=== PATIENT | male | born 1985 | race Caucasian/White ===

== ENCOUNTER 2023-10-02 20:35 | Emergency (ER) | payer OTHER, SELFPAY ==
[2023-10-02 20:39] VITALS: BP 142/90
[2023-10-02 21:24] LABS: % Basophils 0.7 % (0-2); % Eosinophils 3.1 % (0-6); % Immature Granulocytes 0.5 % (0-0.5); % Lymphocytes 17.7 % (20.5-51.1); % Monocytes 8.8 % (1.7-9.3); % Neutrophils 69.2 % (42.2-75.2); Absolute Basophils 0.1 10^3/uL (0-0.2); Absolute Eosinophils 0.3 10^3/uL (0-0.7); Absolute Lymphocytes 1.5 10^3/uL (1.2-3.4); Absolute Monocytes 0.8 10^3/uL (0.1-0.6); Absolute Neutrophils 5.9 10^3/uL (1.4-6.5); Hematocrit 41.8 % (39.0-52.0); Hemoglobin 14.3 g/dL (13.0-18.0); Mean Corp Hgb Conc. 34.2 g/dL (33.0-37.0); Mean Corpuscular Hgb 28.9 pg (27.0-31.0); Mean Corpuscular Volume 84.4 fL (80.0-94.0); Mean Platelet Volume 8.9 fL (7.4-10.4); Nucleated Red Blood Cells % 0 % (-); Platelet Count 182 10^3/uL (130-400); Red Blood Cell Count 4.95 10^6/uL (4.70-6.10); Red Cell Dist. Width 12.1 % (11.5-14.5); White Blood Cell Count 8.5 10^3/uL (4.8-10.8)
[2023-10-02 21:42] VITALS: BP 111/79
[2023-10-02 21:43] LABS: ALT (SGPT) 30 U/L (0-50); AST (SGOT) 24 U/L (17-59); Albumin 4.3 g/dl (3.5-5.0); Alkaline Phosphatase 82 U/L (38-126); Blood Urea Nitrogen 16 mg/dl (9-20); Calcium 9.1 mg/dl (8.4-10.2); Carbon Dioxide 28 mmol/L (22-30); Chloride 106 mmol/L (98-107); Glucose 100 mg/dl (70-99); Lipase 57 U/L (23-300); Potassium 3.9 mmol/L (3.5-5.1); Sodium 138 mmol/L (135-145); Total Bilirubin 0.4 mg/dl (0.2-1.3); eGFR > 60.00
[2023-10-02 21:49] LABS: Troponin I < 0.012 ng/ml
[2023-10-02 21:56] LABS: Glucose - Point of Care 89 mg/dl (70-99)
--- NOTE | 2023-10-02 22:19 | ED.GENMED ---
History of Present Illness
General
Chief Complaint: Musculo-Skeletal Complaint
Source: patient
Exam Limitations: none
Time Seen by Provider: 10/02/23 22:03
Nursing documentation reviewed up to this point in time: agreed with
Travel History
Have you had any contact with someone who has COVID-19?: No
Do you have any symptoms of coronavirus? Fever > 100 degrees, chills, cough, shortness of breath, sore throat, loss of taste or smell, muscle aches, or headache?: No
History of Present Illness
History of Present Illness:
This a pleasant 37-year-old male that presents with right chest pain that originates in the right posterior shoulder. Patient was seen at urgent care today and started on Flexeril and NSAIDs. He states that it has progressively worsened and now
his pain is worsening. He has a hard time taking breaths. He states that this happened to him once before and went to [facility] and diagnosed with angina. Patient denies any strenuous activity today. He works in a police car and
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 He first had symptoms on Tuesday of this week but they waxed and waned during the rest of the week. Today they got worse.
Vital signs are stable. Patient not hypoxic
Nursing note reviewed. I agree with nursing documentation up to this point in time.
Home Meds and allergies reviewed.
NUMBER AND COMPLEXITY OF PROBLEMS ADDRESSED AT THE ENCOUNTER
� Chronic conditions affecting care:
� Acute Exacerbation and/or Progression of Chronic Illness:
� Differential Diagnosis includes: ACS, pleurisy, costochondritis, musculoskeletal chest wall pain
AMOUNT AND/OR COMPLEXITY OF DATA TO BE REVIEWED AND ANALYZED
I performed an independent evaluation of the following and my interpretation is:
EKG: Repeat EKG shows normal sinus rhythm rate 80 with normal intervals, normal axis. No evidence of acute ischemia present.
CT:
CTA CHEST (PE PROTOCOL)
COMPARISON: NONE AVAILABLE
IMPRESSION:
Technically adequate exam. Mild motion artifact. There is no pulmonary embolism.
There is no thoracic aortic aneurysm or dissection.
Bibasilar subsegmental atelectasis.
X-rays:
Ultrasound:
Laboratory Studies: First troponin is negative at less than 0.012
Other:
Review of other/old records:
Clinical information was obtained by an independent historian:
Prescriptions/Medications Considered but not given:
Further testing considered but not performed:
RISK OF COMPLICATIONS AND/OR MORBIDITY OR MORTALITY OF PATIENT MANAGEMENT
Social determinants of health affecting care: Good Social Support
Discussion with other providers:
Escalation of care including admission/observation vs risk of discharge considered:
CRITICAL CARE NOTE:
Total Time (exclusive of procedures):
Update:
Past History
Past History
ED Past Medical History: None
ED Past Surgical History: None
Social History
Living: with family
Employment: Employed
Review of Systems
Review of Systems
Allergies reviewed?: Yes
All Other Systems: ROS reviewed and negative except as documented in HPI and ROS
Respiratory: Reports trouble breathing
Cardiac: Reports chest pain and palpitations
Psychiatric: Reports anxiety
Phy Exam
General Physical Exam
General Presentation: moderate distress
General age: appears stated age
General Skin: warm and dry
General Habitus: normal
General Mental: alert
General Hydration: appears well hydrated
ENT Exam
ENT Exam: EOMI, pharynx normal, neck supple and normocephalic
Eye Exam
Eye Exam: PERRL, cornea clear and conjunctiva normal
Cardiovascular Exam
Cardiovascular Exam: regular rate/rhythm, no edema, no murmur and normal peripheral pulses
Pulmonary Exam
Pulmonary Exam: lungs clear, no rales, no crackles, no rhonchi, no stridor, no wheezing, no cough, decreased breath sounds and respiratory distress
Gastrointestinal Exam
Gastrointestinal Exam: normal bowel sounds, non tender, soft, no organomegaly, no pulsatile mass and non distended
Neurological Exam
Neurological Exam: alert, oriented x3, no motor deficits and speech normal
Musculoskeletal Exam
Musculoskeletal Exam: full ROM and no edema
Skin Exam
Skin Exam: normal color, warm/dry, no rash and no petechia
Psychiatric Exam
Psychiatric Exam: normal mood/affect
Course
Orders/Labs/Results
Orders:
Orders
10/02/23 20:45
Electrocardiogram (*1) Urgent
Reason for Study: Shortness of Breath
EKG- Treatment ONCE
10/02/23 21:12
CMP [Comprehensive Metabolic Panel] Urgent
Complete Blood Count/With Diff Urgent
Lipase Urgent
Troponin I Urgent
10/02/23 22:00
Electrocardiogram (*1) Urgent
Reason for Study: Chest Pain
10/02/23 22:01
EKG- Treatment ONCE
10/02/23 22:18
Aspirin Chewable [Low Strength Aspirin] 324 mg PO NOW STA
Nitroglycerin Sublingual [Nitrostat (Sublingual)] 0.4 mg SL [id number] PRN
10/02/23 23:05
Morphine Sulfate 4 mg IV NOW STA
Ondansetron Injectable [Zofran] 4 mg IV NOW STA
10/03/23 00:00
CT Chest Pe Study Urgent
Reason For Exam: Chest pain with sudden onset shortness of breath
10/03/23 01:08
Troponin I Urgent
Abnormal Lab Results
10/02/23
21:12
Absolute Monos (auto) 0.8 H 10^3/uL
(0.1-0.6)
Lymphocytes % 17.7 L %
(20.5-51.1)
Glucose 100 H mg/dl
(70-99)
05/05/24 21:12
10/02/23 21:12
Vital Signs
Initial and Last Documented VS:
Initial Vital Signs
Temp Pulse Resp BP Pulse Ox
98.2 F 88 22 142/90 100
10/02/23 20:39 10/02/23 20:39 10/02/23 20:39 10/02/23 20:39 10/02/23 20:39
Last Documented Vital Signs
Temp Pulse Resp BP Pulse Ox
98.2 F 81 19 104/66 96
10/02/23 20:39 10/03/23 02:00 10/03/23 02:00 10/03/23 00:46 10/03/23 02:00
*Critical Care Note
Total Time (30-74mins, 75-104mins- exclusive of procedures): Not Applicable
Update Note
Update Note:
CTA CHEST (PE PROTOCOL)
COMPARISON: NONE AVAILABLE
IMPRESSION:
Technically adequate exam. Mild motion artifact. There is no pulmonary embolism.
There is no thoracic aortic aneurysm or dissection.
Bibasilar subsegmental atelectasis.
The results were faxed/finalized only (12:59 AM ET). If you would like to discuss this case directly please call to review.
Lauren Gao M.D.
This report has been electronically signed and verified by the Radiologist whose name is printed above.
ED Attending Note
-
Portions of this chart may have been created with voice recognition software.� Occasional wrong word or��sound alike� substitutions may have occurred due to the inherent limitations of voice recognition software.
Discharge Plan
Departure
Patient Disposition: Home (Routine Discharge)
Date of Disposition: 10/03/23
Time of Disposition: 02:42
Patient with high blood pressure during this ER visit?: No
Condition: Good
Discharge Problem:
Chest pain
Instructions: Chest Pain [facility] Follow Up
Prescriptions:
No Action
oxycodone-acetaminophen 5 MG/325 MG tablet
1 tab PO Q4HPRN PRN (Reason: moderate to severe pain) Qty: 10 0RF
Referrals:
[facility] [Provider Group]
Oj Monteiro DO [Family Provider] -
Activity Restrictions/Additional Instructions:
It was a pleasure meeting you and taking part in your care. We hope for your continued healing and wellness.
Please read discharge instructions in their entirety. However, they are for general education and may not describe your exact diagnosis at discharge. Information on your ER visit and medical conditions were discussed with you along with appropriate
follow up information...
If indicated, please take your medications as instructed and indicated on discharge paperwork.
Please schedule a follow up appointment as directed. Call to schedule an appointment
Please return to the emergency department with ANY change in, persisting, or worsening of symptoms. If any of your symptoms do not improve, or persist, or become more severe within 6-12 hours, please return to the emergency department for further
care.
Please return to the emergency department if you develop a headache, neck pain/stiffness, fever greater than 100.4F, chest pain, shortness of breath, persistent nausea, vomiting, slurred speech, difficulty walking, numbness/tingling, weakness, signs
of infection or any other symptoms that are worrisome to you.
If you have any questions or concerns please do not hesitate to call the Hospital at or E-mail me directly at [email or web address]
Interventions
Interventions:
*Risk Screen - Suicide Last Done: 10/02/23 20:39
*General Assessment Last Done: 10/03/23 02:28
*Neglect/Abuse Screening Last Done: 10/02/23 20:39
ED- Fall Risk Assessment Last Done: 10/03/23 02:28
*ED COVID-19 Vaccine History Last Done: 10/03/23 02:28
ED- Cardiac Assessment Last Done: 10/02/23 21:55
ED-Musculoskeletal Assessment Last Done: 10/02/23 21:55
Discharge Date and Time
Print Language: CITIZEN [place]
[2023-10-02] MEDS: LOW STRENGTH ASPIRIN 324 MG PO (22:26)
[2023-10-02] MEDS: NITROSTAT (SUBLINGUAL) 0.400000000000000022 MG SL (22:26)
[2023-10-02] MEDS: ZOFRAN 4 MG IV (23:07)
[2023-10-02] MEDS: MORPHINE SULFATE 4 MG IV (23:08)
[2023-10-03 00:46] VITALS: BP 104/66
[2023-10-03 01:44] LABS: Troponin I < 0.012 ng/ml
[2023-10-03 02:48] VITALS: BP 116/79
== END 2023-10-03 02:54 | disposition home or self-care (01) ==
LOC: EMR 20:35
PROVIDERS: Emergency Medicine; EMERGENCY PHYSICIAN Student in an Organized Health Care Education/Training Program; FAMILY PHYSICIAN Family Medicine
DX: R07.89 Other chest pain (principal); M25.511 Pain in right shoulder; R06.02 Shortness of breath; R00.2 Palpitations; J98.11 Atelectasis; F41.9 Anxiety disorder, unspecified; G43.909 Migraine, unspecified, not intractable, without status migrainosus; J45.909 Unspecified asthma, uncomplicated; Z86.16 Personal history of COVID-19; Z91.048 Other nonmedicinal substance allergy status
CPT/HCPCS: 99285; 96374; 96375; 71275; 80053; 82962; 83690; 84484; 85025; 93005; Q9967

== ENCOUNTER → 2025-03-20 09:49 | Outpatient (REF) | payer OTHER, SELFPAY | LOC: RAD 09:49 | PROVIDERS: ATTENDING PHYSICIAN Family Medicine | DX: M54.12 Radiculopathy, cervical region (principal) | CPT/HCPCS: 72050 ==